=== PATIENT | female | born 1955 | race Caucasian/White ===

== ENCOUNTER 2017-01-29 21:01 | Emergency (ER) | payer MEDICAID ==
[~2017-01-29] VITALS: Ht 167.6 cm; Wt 72.6 kg
[2017-01-29 21:15] VITALS: BP 196/113
[2017-01-29] MEDS ORDERED: HYDROcodone-ACET 10/325MG TAB PO ONE (23:45)
== END 2017-01-29 23:49 | disposition home or self-care (01) ==
LOC: ER 21:11
DX: S42.214A Unspecified nondisplaced fracture of surgical neck of right humerus, initial encounter for closed fracture (principal); E11.9 Type 2 diabetes mellitus without complications; K21.9 Gastro-esophageal reflux disease without esophagitis; I10 Essential (primary) hypertension; Z90.710 Acquired absence of both cervix and uterus; Z90.89 Acquired absence of other organs; F17.210 Nicotine dependence, cigarettes, uncomplicated; F12.10 Cannabis abuse, uncomplicated; Z88.6 Allergy status to analgesic agent; W01.0XXA Fall on same level from slipping, tripping and stumbling without subsequent striking against object, initial encounter; Y93.89 Activity, other specified; Y99.8 Other external cause status; Y92.89 Other specified places as the place of occurrence of the external cause
CPT/HCPCS: 29105; 73030

== ENCOUNTER 2018-03-04 06:03 | Emergency (ER) | payer MEDICAID ==
[~2018-03-04] VITALS: Ht 167.6 cm; Wt 74.8 kg
[2018-03-04 07:09] VITALS: BP 148/75
[2018-03-04 07:44] LABS: Basophils # (auto) 0.1 uL; Basophils % (auto) 0.4 % (0.0-2.0); Eosinophils # (auto) 0.1 uL; Hematocrit 41.1 % (36.0-46.0); Hemoglobin 13.7 g/dL (12.2-16.2); Lymphocytes # (auto) 1.6 uL; Lymphocytes % (auto) 11.9 % (10.0-50.0); Mean Corpuscular Hemoglobin 28.7 pg (28.0-32.0); Mean Corpuscular Hgb Conc. 33.3 g/dL (32.0-36.0); Mean Corpuscular Volume 86.2 fL (80.0-100.0); Monocytes # (auto) 1.5 uL; Monocytes % (auto) 11.4 % (0.0-12.0); Neutrophils # (auto) 10.1 uL; Neutrophils % (auto) 75.3 % (37.0-80.0); Platelet Count (auto) 108 10^3/uL (140-450); Red Blood Cells 4.77 10^6/uL (4.0-5.20); White Blood Cell 13.4 10^3/uL (4.4-10.8)
[2018-03-04] MEDS ORDERED: cefTRIAXone 1GM/50ML D5W 50 ML IV ONE (07:45)
[2018-03-04] MEDS ORDERED: CLINDAMYCIN 600MG IV 50 ML IV ONE (07:45)
[2018-03-04 08:01] LABS: BUN/Creatinine Ratio 23.3; Potassium 4.1 mmol/L (3.5-5.1)
[2018-03-04] MEDS ORDERED: SODIUM CHLORIDE 0.9% 1,000 ML IV ONE (08:30)
[2018-03-04] MEDS ORDERED: ACETAMINOPHEN 325 MG TAB PO ONE (09:30)
[2018-03-04 13:06] LABS: Uric Acid 3.4 mg/dL (2.6-6.0)
[2018-03-05] MEDS ORDERED: METF-370 PO (17:53)
[2018-03-05] MEDS ORDERED: GLIP-115 PO (18:00)
[2018-03-05] MEDS ORDERED: OMEP20TA PO (18:00)
[2018-03-05] MEDS ORDERED: ATEN-60 PO (18:00)
[2018-03-05] MEDS ORDERED: METO25TA5 PO (18:00)
[2018-03-05] MEDS ORDERED: NAP500T PO (18:00)
[2018-03-05] MEDS ORDERED: CANA300T OR (18:00)
[2018-03-05] MEDS ORDERED: GABA300C10 PO (18:00)
[2018-03-05] MEDS ORDERED: BENA40TA7 PO (18:00)
[2018-03-05] MEDS ORDERED: SERT-274 PO (18:04)
[2018-03-05] MEDS ORDERED: INSLANTI SC (18:04)
[2018-03-05] MEDS ORDERED: CYAN1TAB14 PO (18:04)
[2018-03-05] MEDS ORDERED: SIMV10TA84 PO (18:04)
[2018-03-05] MEDS ORDERED: ASPI81TA27 PO (18:04)
== END 2018-03-04 09:34 | disposition home or self-care (01) ==
LOC: ER 06:09
DX: L03.113 Cellulitis of right upper limb (principal); F17.210 Nicotine dependence, cigarettes, uncomplicated; F12.10 Cannabis abuse, uncomplicated; E11.9 Type 2 diabetes mellitus without complications; K21.9 Gastro-esophageal reflux disease without esophagitis; I10 Essential (primary) hypertension; Z90.710 Acquired absence of both cervix and uterus; Z88.6 Allergy status to analgesic agent
CPT/HCPCS: 36415; 73090; 80048; 82962; 84550; 85025; 87040; 96365; 96368; 99285; J0696; J3490; J7030